=== PATIENT | female | born 1985 | race Caucasian/White ===

== ENCOUNTER → 2019-09-29 09:42 | Outpatient (BNVA) | payer MEDICAID, SELFPAY | PROVIDERS: Family Provider Family Medicine; PCP Family Medicine; Visit Provider Nurse Practitioner Women's Health | DX: Z34.81 Encounter for supervision of other normal pregnancy, first trimester; Z78.9 Other specified health status | CPT/HCPCS: 81000; 84315 ==

== ENCOUNTER → 2019-10-01 09:30 | Outpatient (BNVA) | payer MEDICAID, SELFPAY | PROVIDERS: Family Provider Family Medicine; PCP Family Medicine; Referring Provider Nurse Practitioner Women's Health; Visit Provider Nurse Practitioner Women's Health | DX: Z34.91 Encounter for supervision of normal pregnancy, unspecified, first trimester (principal) | CPT/HCPCS: 76801 ==

== ENCOUNTER → 2019-10-12 10:29 | Outpatient (BNVA) | payer MEDICAID, SELFPAY | PROVIDERS: Family Provider Family Medicine; PCP Family Medicine; Visit Provider Obstetrics & Gynecology | DX: Z01.89 Encounter for other specified special examinations (principal) | CPT/HCPCS: 84315 ==

== ENCOUNTER 2019-10-13 21:19 | Emergency (ER) | payer MEDICAID, SELFPAY ==
[2019-10-13 21:47] VITALS: BP 95/59; PULSE 94; RESP 18; O2SAT 99; BMI 22.8
--- NOTE | 2019-10-13 22:12 | ED_ITS ---
Entered by Latrice Busch, acting as scribe for Earnestine Leonard MD Oct 13, 2019 21:19 HPI - General Adult General: Chief complaint: General Medical Stated complaint: 12 WKS PREG, FEVER, VOMITING Time Seen by Provider: 10/13/19 22:08 Source: patient and family Mode of arrival: ambulatory History of Present Illness: HPI narrative: 34 y/o female presents to the ED with complaint of fever and body aches. Pt states she has had N/V and abd pain when she coughs. She had a temp of 102 prior to taking Tylenol this evening. Pt is 12 weeks and was recently seen by her OB. Pt states she did not receive a flu vaccination. MD complaint: Fever, Body aches Onset (ago): day(s) Pain Consistency: constant Associated symptoms: Reports cough, fevers/chills, nausea, vomiting and weakness; Deny chest pain, headache(s) or rash Review of Systems Const: Reports: fever, chills and body aches Eyes: Denies: blurry vision or eye discomfort ENMT: Denies: throat pain or dental pain Card: Denies: chest pain Resp: Reports: non-productive cough GI: Reports: abdominal pain, nausea and vomiting : Denies: painful urination Musc: Denies: neck pain or back pain Skin/Breast: Denies: rash Neuro: Denies: headache Psych: Denies: depression Mitesh/Lymph: Denies: easy bruising All/Imm: Denies: hives PFSH ED PFSH: Statuses (acute, chronic, etc) shown below reflect problem list status as previously entered and may not be historically accurate Medical History (Updated 10/13/19 @ 22:53 by Earnestine Leonard MD) Patient denies medical problems (Acute) Denies htn,dm,lung,dvt/pe, herpes Surgical History (Updated 09/29/19 @ 09:44 by Karen Herrera APN, LUCAS) H/O knee surgery (Acute) At age 16. Left; lateral release Social History (Updated 10/12/19 @ 10:26 by Onelia Singh LPN) Smoking and tobacco status: never smoked Quit status (tobacco): has quit using tobacco Former quit date comment: 09/04/2019-- was up to 1 ppd Smoking risk assessment/counseling performed?: Yes Alcohol intake: former Former alcohol use details: Socally before finding out she was Additional social history: well-balanced Physical Exam Const: COMMON NORMALS: no apparent distress and oriented x3 GENERAL APPEARANCE: cooperative HENMT: COMMON NORMALS: normocephalic and head/scalp atraumatic HEAD & SCALP: normocephalic and atraumatic Eye: COMMON NORMALS: PERRL and EOMs intact bilaterally PUPIL: Yes PERRL Neck/C-Spine: COMMON NORMALS: full ROM and supple Chest: COMMONS NORMALS: inspection of chest normal and palpation of chest normal Resp: COMMON NORMALS: normal respiratory effort, no retractions, no use of accessory muscles and clear to auscultation bilaterally AUSCULTATION: clear to auscultation bilaterally Cardio: COMMON NORMALS: regular rate, regular rhythm and no murmurs RATE: regular rate RHYTHM: regular rhythm GI: COMMON NORMALS: normal to inspection, nondistended, normoactive bowel sounds, soft to palpation, non-tender and no masses PALPATION: Yes soft Extremity: COMMON NORMALS: normal to inspection and full ROM Neuro: COMMON NORMALS: oriented x3, moves all extremities and no focal motor deficits Psych: COMMON NORMALS: mental status grossly normal, thought process normal and cooperative THOUGHT PROCESS: normal thought process Skin: COMMON NORMALS: no rashes or lesions noted and no wounds GENERAL SKIN EXAM: no rashes or lesions noted Course Vital Signs: Vital signs: Vital Signs Temperature 98.2 F 10/13/19 22:59 Pulse Rate 78 10/13/19 22:59 Respiratory Rate 18 10/13/19 22:59 Blood Pressure 101/54 10/13/19 22:59 Pulse Oximetry 100 10/13/19 22:59 MDM - General Adult MDM Narrative: Medical decision making narrative: Patient presents here with fever is found to have influenza likely causing his fever. Patient also has a urinary tract infection. Abdominal exam here is benign she has no signs of sepsis here. Will start patient on Tamiflu and Keflex. Patient is to follow-up with her OB as soon as possible and return to the ER if worsening. Lab Data: Labs: Lab Results 10/13/19 10/13/19 10/13/19 Range/Units 21:52 21:52 21:52 Urine Color Straw (Yellow) Urine Appearance Sl hazy (CLEAR) Urine pH 7 (5-7) Ur Specific Gravit y 1.015 (1.005-1.030) Urine Protein Neg (Negative) Urine Glucose (UA) Norm (Normal) Urine Ketones 1+ H (Negative) Urine Occult Blood 2+ H (Negative) Urine Nitrate Positive H (Negative) Urine Bilirubin Neg (NEGATIVE) Urine Urobilinogen Norm (Negative) mg/dL Ur Leukocyte Azeb ase Trace H (Negative) Urine RBC 5-10 H (0-2) /hpf Urine WBC 5-10 H (0-5) /hpf Ur Squamous Epith Cells 10-15 H (0-5) Amorphous Sediment 1+ Urine Bacteria 2+ H (NONE) Influenza Type A A g Negative (Negative) POC Influenza B Ag Positive H (Negative) Group A Strep Rapi d Negative (Negative) Discharge Plan Discharge Patient Disposition: Home, Self-Care Clinical Impression: Influenza UTI (urinary tract infection) Qualifiers: Urinary tract infection type: site unspecified Hematuria presence: without hematuria Qualified Code(s): N39.0 - Urinary tract infection, site not specified Condition: Stable Prescriptions: New Zofran 4 mg tablet 4 mg PO QID PRN (Reason: nausea and vomiting) Qty: 14 RF: 0 Keflex 500 mg capsule 500 mg PO Q6H 7 Days Qty: 28 RF: 0 Tamiflu 75 mg capsule 75 mg PO BID 5 Days Qty: 10 RF: 0 No Action Gummies 400 mcg-35 mg- 25 mg-5 mg tablet,chewable PO DAILY RF: 0 Discharge Orders: Discharge Order (Routine); Ordered 10/13/19 Ordered By: Earnestine Leonard Referrals: Galileo Garland MD [Primary Care Provider] - Discharge Diet: Advance as tolerated Discharge Activity: Resume usual activity Patient Instructions: Urinary Tract Infection in Women (ED), Influenza (ED) Coding Level of Care Code ED Cnmt for Chg Fwd Exam Problem Focused The documentation recorded by the Narayan go Ashley, accurately reflects the service I personally performed and the decisions made by Aisha schmidt Korby, MD Oct 13, 2019 21:19
[2019-10-13 22:20] LABS: Urine Appearance SL Hazy (CLEAR); Urine Color Straw (Yellow)
[2019-10-13 22:22] LABS: Bilirubin Urine Neg (NEGATIVE); Blood Urine 2+ (Negative); Glucose Urine UA Norm (Normal); Ketones Urine 1+ (Negative); Leukocyte Esterase Urine Trace (Negative); Nitrate Urine Positive (Negative); Protein Urine Neg (Negative); Specific Gravity, Urine 1.015 (1.005-1.030); Urobilinogen Urine Norm (Negative); pH Urine 7 (5-7)
[2019-10-13 22:23] LABS: Rapid Strep A Test Negative (Negative)
[2019-10-13 22:26] LABS: Bacteria Urine 2+
[2019-10-13 22:27] LABS: Add Urine Culture? No; Amorphous Sediment Urine 1+
[2019-10-13 22:30] LABS: Influenza A by IFA Negative (Negative); Influenza B by IFA Positive (Negative)
[2019-10-13] MEDS: sodium chloride 0.9% 1,000 ML 999 ML IV (22:50)
[2019-10-13 22:59] VITALS: BP 101/54; PULSE 78; RESP 18; TEMP 36.8; O2SAT 100
[2019-10-13] MEDS: cefTRIAXone 1,000 mg SDV 1000 MG IM (23:05)
[2019-10-13] MEDS: oseltamivir phosphate 75 mg Capsule PO (23:17)
[2019-10-13 23:48] VITALS: BP 115/68; PULSE 85; RESP 18; O2SAT 99
== END 2019-10-13 23:51 | disposition home or self-care (01) ==
PROVIDERS: Emergency Provider Emergency Medicine; Family Provider Family Medicine; PCP Family Medicine
DX: O98.511 Other viral diseases complicating pregnancy, first trimester (principal); O23.41 Unspecified infection of urinary tract in pregnancy, first trimester; J11.1 Influenza due to unidentified influenza virus with other respiratory manifestations; Z87.891 Personal history of nicotine dependence; Z3A.12 12 weeks gestation of pregnancy
CPT/HCPCS: 81001; 87081; 87804; 87880; 96360; 96372; 96375; 99282; 99283; A9270; J0696; J7030

== ENCOUNTER 2020-04-25 14:47 | Inpatient (IN) | payer MEDICAID, SELFPAY ==
[2020-04-25] VITALS (17 sets, daily range): BP systolic 91–129; BP diastolic 53–70; PULSE 61–92; RESP 15–18; TEMP 36.8–37.1; O2SAT 98; BMI 25.8
--- NOTE | 2020-04-25 15:13 | PC.NURSE ---
Sourav RN update given to , verbalized he will be here in 5 min.
--- NOTE | 2020-04-25 15:44 | PM.DELIVERY ---
Delivery Note: Date of delivery: April 25, 2020 Pre-Delivery Course: The patient is a 34-year-old 3 para 2-0-0-2 at 40 weeks estimated gestational age who presented to the hospital in active labor. She had an unremarkable . She was GBS negative. The remainder of her labs were within normal limits. She had spontaneous rupture of membranes in the hospital. She quickly progressed to complete without difficulty. Delivery: DELIVERY: The patient progressed to complete without difficulty. She delivered a male with a weight of 7 pounds 10 ounces with Apgars of 8, 9. The baby was delivered from the HOLLAND position. The baby was delivered and placed on the mother's abdomen. The baby's mouth and nose were then suctioned. The cord was then clamped and cut after waiting for 1 minute. There was no nuchal cord. There was no meconium. The placenta and 3 vessel cord were delivered intact shortly thereafter. The perineum and vaginal vault were carefully examined. No lacerations were noted. Both the mother and the baby were in stable condition. A&P Assessment and plan (1) 40 weeks gestation of : Anticipate routine care. The patient does desire sterilization, so we will plan on her having a tubal tomorrow. We will work on the exact time coordinating with the operating room. Status: Acute (2) Sterilization consult: Status: Acute Coding Level of Care Code Acute Concaving Machine Operator for Víctor Joy Diagnoses 40 weeks gestation of Z3A.40 Sterilization consult Z30.09
--- NOTE | 2020-04-25 15:47 | PM.HP ---
Providers/Chief Complaint Admitting Physician: Mert Shah MD Primary Care Provider: Galileo Garland MD Chief Complaint: IUP TERM History of Present Illness Ursula Pugh is a 34 year old female who had discussion with earlier in her about her desire for sterilization. At that time she made it clear that she wanted to have a bilateral tubal ligation. We discussed the risks of bleeding, infection, and damage intra-abdominal organs. We also discussed the possibility of becoming again after a successful tubal ligation. She had an unremarkable spontaneous vaginal delivery. She once again reiterated that she would like to proceed with a tubal ligation. Review of Systems General: Reports: 10 or more systems reviewed and unremarkable except in HPI and below Const: Reports: fatigue; Denies: fever(s) Eyes: Denies: change in vision Card: Denies: chest pain Musc: Reports: back pain Mitesh/Lymph: Denies: easy bruising Medications/Allergies Home Medications Medication Instructions Recorded Confirmed Last Taken Type PNV 153-FA 400 mcg-om3 35 mg-dha tab PO DAILY tab 09/29/19 10/12/19 10/13/19 History 25 mg-epa 5 mg-fish oil chew tablet hydrocodone-acetaminophen 1 tab PO Q6H PRN #10 tab 04/26/20 Unknown Rx ibuprofen 800 mg PO Q8H #30 tab 04/26/20 Unknown Rx ibuprofen 800 mg PO TID #45 tab 04/26/20 Unknown Rx Allergies Allergy/AdvReac Type Severity Reaction Status Date / Time No Known Allergies Allergy Verified 10/12/19 10:24 PFSH Acute PFSH: Medical History Patient denies medical problems Denies htn,dm,lung,dvt/pe, herpes Surgical History H/O knee surgery At age 16. Left; lateral release Family History Grandmother Cancer Maternal grandmother-Breast cancer Diabetes Paternal and Maternal Grandmother Cancer Paternal Grandmother-Uterine cancer & colon cancer Grandfather CAD (coronary artery disease) Maternal grandfather Diabetes Maternal & Paternal Mother CAD (coronary artery disease) Diabetes Father Diabetes Hypertension Sister Family history of thyroid problem Denies family history of Stroke Social History (Updated 10/12/19 @ 10:26 by Onelia Singh LPN) Smoking and tobacco status: never smoked Quit status (tobacco): has quit using tobacco Former quit date comment: 09/04/2019-- was up to 1 ppd Smoking risk assessment/counseling performed?: Yes Alcohol intake: former Former alcohol use details: Socally before finding out she was Additional social history: well-balanced Vitals/I&O/Wt Last Vital Signs Pulse 91 04/25/20 15:42 BP 120/70 04/25/20 15:42 Physical Exam Const: COMMON NORMALS: no acute distress and patient oriented x3 GENERAL APPEARANCE: cooperative, comfortable and well developed HENMT: COMMON NORMALS: normocephalic and moist oral mucous membranes HEAD & SCALP: normocephalic Chest: COMMONS NORMALS: normal inspection of the chest Resp: COMMON NORMALS: normal respiratory effort and clear to auscultation bilaterally AUSCULTATION: clear to auscultation bilaterally Cardio: COMMON NORMALS: regular rate, regular rhythm, No gallops present (Cardio), No murmurs present (Cardio) and No rub (Cardio) RATE: regular rate RHYTHM: regular rhythm Extremity: COMMON NORMALS: normal to inspection Neuro: COMMON NORMALS: patient oriented x3 and no focal motor deficits Skin: COMMON NORMALS: no rashes or lesions noted GENERAL SKIN EXAM: no rashes or lesions noted Data : 04/26/20 03:20 A&P Assessment and plan (1) Sterilization consult: We discussed the patient's desire for sterilization. She still wants a tubal ligation. We discussed the risks of bleeding, infection, damage to intra-abdominal organs. She understands that even with a perfect tubal ligation that she has a 1 and 200 chance of becoming . Status: Acute (2) Spontaneous vaginal delivery: Status: Acute Attestations Medical Necessity Statement*: Routine vaginal delivery and care. Coding Level of Care Code Acute Occupational Nurse for Víctor Fwd Exam Comprehensive Diagnoses Sterilization consult Z30.09 Spontaneous vaginal delivery O80
[2020-04-25 15:51] LABS: Basophils % 0.2 %; Eosinophils # 0.1 10^3/uL (0.0-0.8); Lymphocytes # 3.3 10^3/uL (0.8-4.8); Lymphocytes % 25.4 %; Mean Corpuscular HGB Conc 33.3 g/dL (30.0-36.0); Mean Corpuscular Hemoglobin 32.6 pg (28.0-34.0); Mean Corpuscular Volume 97.8 fL (81-99); Mean Platelet Volume 10.4 fL (7.4-10.4); Monocytes # 0.7 10^3/uL (0.2-0.9); Monocytes % 5.3 %; Neutrophils # 8.79 10^3/uL (1.8-7.7); Neutrophils % 67.3 %; Nucleated Red Blood Cells % 0 %; Platelet Count 332 10^3/cmm (130-400); Red Blood Count 3.68 10^6/uL (4.1-5.3); Red Cell Distribution Width 12.2 % (12.1-15.1); White Blood Count 13.1 10^3/uL (4.0-10.0)
[2020-04-25] MEDS: morphine 4 mg/mL SDV 1 mL 2 MG IVP (16:00)
[2020-04-25] MEDS: oxytocin 30 UNIT/500 ML BAG 600 UNIT IV (16:01)
--- NOTE | 2020-04-25 19:01 | PC.NURSE ---
pt ambulated to room 206-2. oriented to room/call light. proud parent pack discussed.
[2020-04-26] VITALS (17 sets, daily range): BP systolic 88–122; BP diastolic 50–76; PULSE 55–80; RESP 10–20; TEMP 36.2–36.9; O2SAT 96–100
[2020-04-26 03:29] LABS: Hematocrit 34.1 % (37.0-47.0); Hemoglobin 11.2 g/dL (11.5-15.3); Mean Corpuscular HGB Conc 32.8 g/dL (30.0-36.0); Mean Corpuscular Hemoglobin 32.7 pg (28.0-34.0); Mean Corpuscular Volume 99.7 fL (81-99); Mean Platelet Volume 9.8 fL (7.4-10.4); Platelet Count 303 10^3/cmm (130-400); Red Blood Count 3.42 10^6/uL (4.1-5.3); Red Cell Distribution Width 12.2 % (12.1-15.1); White Blood Count 16.2 10^3/uL (4.0-10.0)
--- NOTE | 2020-04-26 06:45 | ANES.PREANE2 ---
Pre-Anesthetic Assessment Pre-Anesthetic Assessment: Height/Weight: Height 1.7 m Weight 74.843 kg Temp Pulse Resp BP Pulse Ox 98.4 F 67 15 93/51 97 04/26/20 05:20 04/26/20 05:20 04/26/20 05:20 04/26/20 05:20 04/26/20 05:20 Preop Diagnosis: POST BILATERAL TUBAL LIGATION Proposed Procedure: Operation Date: 04/26/20 07:00 Proposed Procedures p Bilateral Tubal Ligation(Bilateral) - Mert Shah MD Was Beta Nico taken within 24 hours: N/A Social: Social History: No alcohol and No tobacco Exam: Pre-Anes Outpt Exam: alert, oriented x 3, clear to auscultation bilaterally and regular rate & rhythm Airway: Submandibular: WNL Cervical ROM: WNL MP: 2 Dentition: Full History/ROS: No significant complaints Pulmonary: Pulmonary: None reported CV/HEM: CV/HEM: None reported : : None reported Hepatic: Hepatic: None reported GI: GI: None reported Metabolic: Metabolic: None reported Musc/skel: Musc/skel: None reported Neuropsych: Neuropsych: None reported Anesthetic Plan: ASA status: 2 Anesthesia: General Meds/Allergies Current Medications: Current Medications Generic Name Dose Route Start Last Admin Trade Name Dicksonq PRN Reason Stop Dose Admin Ibuprofen 800 mg 04/25/20 21:00 04/25/20 20:14 Motrin PO 800 mg TID SHILPA Administration PFSH Anesthesia PFSH: Medical History Patient denies medical problems Denies htn,dm,lung,dvt/pe, herpes Surgical History H/O knee surgery At age 16. Left; lateral release Family History Grandmother Cancer Maternal grandmother-Breast cancer Diabetes Paternal and Maternal Grandmother Cancer Paternal Grandmother-Uterine cancer & colon cancer Grandfather CAD (coronary artery disease) Maternal grandfather Diabetes Maternal & Paternal Mother CAD (coronary artery disease) Diabetes Father Diabetes Hypertension Sister Family history of thyroid problem Denies family history of Stroke Social History (Updated 10/12/19 @ 10:26 by Onelia Singh LPN) Smoking and tobacco status: never smoked Quit status (tobacco): has quit using tobacco Former quit date comment: 09/04/2019-- was up to 1 ppd Smoking risk assessment/counseling performed?: Yes Alcohol intake: former Former alcohol use details: Socally before finding out she was Additional social history: well-balanced Female Reproductive History: : 3 Data Anesthesia CBC & Chem 7: 04/26/20 03:20 Other Labs: Laboratory Results - last 48 hr 04/25/20 04/26/20 15:00 03:20 WBC 13.1 H 16.2 H RBC 3.68 L 3.42 L Hgb 12.0 11.2 L Hct 36.0 L 34.1 L MCV 97.8 99.7 H MCH 32.6 32.7 MCHC 33.3 32.8 RDW 12.2 12.2 Plt Count 332 303 MPV 10.4 9.8 Neut % (Auto) 67.3 Lymph % (Auto) 25.4 [place] % (Auto) 5.3 Eos % (Auto) 1.0 Baso % (Auto) 0.2 Neut # (Auto) 8.79 H Lymph # (Auto) 3.3 [place] # (Auto) 0.7 Eos # (Auto) 0.1 Baso # (Auto) 0.0 Nucleated RBC % (auto) 0 Nucleated RBCs # 0.0 Cardiac Studies: No Data to Display
[2020-04-26] MEDS: sodium chloride 0.9% 1,000 ML 30 ML IV (06:59)
--- NOTE | 2020-04-26 07:38 | PM.OP ---
Operative Report Date of procedure: April 26, 2020 Pre-op Diagnosis: POST BILATERAL TUBAL LIGATION Post-op diagnosis: same Procedure Done: Minilaparotomy bilateral tubal ligation using a modified Ivonne technique Specimens removed/disposition: Bilateral fallopian tube segments with the right segment being tagged Pathology: other Pathology: Bilateral fallopian tube segments with the right segment being tagged Surgeon: Mert Shah Anesthesia: General Estimated blood loss (mL): 5 Condition: stable Disposition: floor (OB) Brief History: Refer to history and physical Procedure: The patient was brought back to the operating room where anesthesia was found to be adequate. 10 mL of 0.5% bupivacaine was then used to pre-anesthetize the area just inferior to the umbilicus. A #15 blade was then used to make a 3 cm transverse incision just inferior to the umbilicus. I then dissected down to the underlying subcutaneous tissue until arriving at the fascia. The fascia was then nicked with the scalpel. The fascial incision was extended manually. I identified the fundus of the uterus and followed it to the left fallopian tube. The fallopian tube was then followed to the fimbria. The tube was then ligated, cut, and cauterized in a modified [place] fashion using 0 chromic. The right fallopian tube was then identified and followed through to the fimbria. It was ligated, cut, and cauterized in similar fashion. The right fallopian tube was tagged. Both fallopian tubes had excellent hemostasis. The fascia was reapproximated using 0 Vicryl in running stitch. The subcutaneous tissue was carefully examined and no further bleeding was noted. The skin was then reapproximated using 4-0 Vicryl in a running subcuticular stitch. A sterile dressing was placed. All counts were correct x2. The patient was moved to the recovery room in stable condition.
--- NOTE | 2020-04-26 08:08 | SUR.PHASEI ---
0751 PATIENT TO PACU FROM OR . RR EVEN AND UNLABORED. SPO2 100% ON SIMPLE MASK AT 8L.
--- NOTE | 2020-04-26 08:12 | PM.PACU ---
PACU note PACU note: VSS, good pain control. Post-Anesthesia Exam: somnolent, arousable Disposition: discharged and back to floor
--- NOTE | 2020-04-26 08:30 | ANE.PACU2 ---
Inpatient post-anesthesia follow up: Airway intact: Yes Vital signs: Temperature 98.4 F Pulse Rate 72 Respiratory Rate 16 Blood Pressure 98/66 Pulse Oximetry 98 Oxygen Delivery Me thod Room Air Oxygen Flow Rate 8 Fraction of Inspir ed Oxygen Hydration adequate: Yes Nausea and vomiting: Yes Pain level: 1 Mental status: Baseline
--- NOTE | 2020-04-26 08:31 | SUR.PHASEI ---
0815 PATIENT TO OB FROM PACU. RR EVEN AND UNLABORED. DRESSING TO ABDOMEN, CDI. PATIENT RATES PAIN 5/10. TOLERATING ICE CHIPS.
[2020-04-26] MEDS: HYDROcodone-acetaminophen 5-325 mg Tablet PO (08:32)
[2020-04-26] MEDS: prenatal vitamin Capsule 1 CAP PO (09:29)
[2020-04-26] MEDS: docusate sodium 100 mg Capsule PO ×2 (09:30→17:51)
--- NOTE | 2020-04-26 17:29 | PM.OBGYDC ---
Discharge Providers INSURANCE CLAIMS REPRESENTATIVE Date of Admission: 04/25/20 14:47 Date of Discharge: 04/26/20 Attending Provider at Admission: Mert Shah MD Attending Provider at Discharge: Mert Shah MD Primary Care Provider: Galileo Garland MD Diagnoses at Discharge Discharge Diagnosis (1) Sterilization consult: Status: Acute (2) Spontaneous vaginal delivery: Status: Acute Reason for Visit Reason for Visit: IUP TERM Hospital Course Hospital Course: The patient is a 34-year-old 3 para 2-0-0-2 with an estimated gestational age of 40 weeks presenting to the hospital in active labor. She quickly progressed to complete and had an unremarkable delivery of a healthy-appearing male infant. Her course was also unremarkable. She desired sterilization, and the tubal ligation was performed the following morning. Her bleeding was within normal limits. She breast-fed well. Her pain was well controlled. Information Peripartum Data: Delivery Method: Vaginal Physical Exam Narrative: EXAM NARRATIVE: The patient is alert. She appears comfortable. Her heart has a regular rate and rhythm with no murmurs appreciated. Lungs are clear to auscultation bilaterally. Her fundus is firm and below the umbilicus. Her dressing is clean dry and intact Discharge Data Data Completed and Pending: Pending at discharge Category Date Time Status Hemagram Timed Lab 04/26/20 19:46 Uncollected Pathology: Surgic al [PTH] Routine Pth 04/26/20 07:58 Received Labs from last 24 hours 04/26/20 03:20 WBC 16.2 H RBC 3.42 L Hgb 11.2 L Hct 34.1 L MCV 99.7 H MCH 32.7 MCHC 32.8 RDW 12.2 Plt Count 303 MPV 9.8 Vitals: The patient is a 3 para 2-0-0-2 with an estimated stational age of 40 weeks who presented to the hospital in active laborLast Vital Signs Temp 98.3 F 04/26/20 13:24 Pulse 66 04/26/20 13:24 Resp 18 04/26/20 13:24 BP 100/61 04/26/20 13:24 Pulse Ox 97 04/26/20 13:24 Discharge Plan Discharge Patient Disposition: Home Condition: Stable Prescriptions: New ibuprofen 800 mg tablet 800 mg PO Q8H Qty: 30 RF: 0 hydrocodone-acetaminophen 5-325 mg Tablet 1 tab PO Q6H PRN (Reason: Moderate To Severe Pain) Qty: 10 RF: 0 ibuprofen 800 mg Tablet 800 mg PO TID Qty: 45 RF: 0 Continued Gummies 400 mcg-35 mg- 25 mg-5 mg tablet,chewable PO DAILY RF: 0 Discontinued ondansetron HCl [Zofran] 4 mg tablet 4 mg PO QID PRN (Reason: nausea and vomiting) Qty: 14 RF: 0 Discharge Orders: Discharge Order (Routine); Ordered 04/26/20 Ordered By: Mert Shah Referrals: Mert Shah MD [Physician] - 4-7 days (Also follow up in 6 weeks) Discharge Diet: Usual diet Discharge Activity: Limit activity as instructed Patient Instructions: Vitamins (By mouth), OB Discharge Report, OB Food/Drug Interaction Guide, OB Proud Parent Packet, OB Vaginal Deliveries Discharge Attestations INSURANCE CLAIMS REPRESENTATIVE Time Spent in Discharge Care*: less than 30 min Coding Level of Care Code Acute Planning Director for Chg Fwd Diagnoses Sterilization consult Z30.09 Spontaneous vaginal delivery O80
[2020-04-26] MEDS: measles,mumps,rubella pf Vial (w/diluent) 0.5 ML SUBCUT (17:51)
[2020-04-26] MEDS: lanolin oint 7 gm 1 APPLIC TOPICAL (18:01)
== END 2020-04-26 18:45 | disposition home or self-care (01) | DRG 798 ==
PROVIDERS: Admitting Provider Family Medicine; Family Provider Family Medicine; PCP Family Medicine; Visit Provider Family Medicine
PROC: 0U574ZZ Destruction of Bilateral Fallopian Tubes, Percutaneous Endoscopic Approach (ICD-10-PCS; CPT 58605; principal; 2020-04-26 07:00)
DX: O80 Encounter for full-term uncomplicated delivery (principal); Z37.0 Single live birth; Z3A.40 40 weeks gestation of pregnancy; Z87.891 Personal history of nicotine dependence; Z30.2 Encounter for sterilization
CPT/HCPCS: 12345; 36415; 59025; 59409; 85025; 85027; 88302; 90707; 96372; 99211; J1100; J2250; J2270; J2405; J2704; J2710; J3010; J3490; J7030

== ENCOUNTER 2023-01-11 12:16 | Outpatient (CLI) | payer MEDICAID, SELFPAY ==
--- NOTE | 2023-01-11 12:29 | CTR_ITS ---
PROCEDURE INFORMATION: Exam: CT Abdomen And Pelvis Without Contrast Exam date and time: 01/11/2023 12:42 PM Age: 37 years old Clinical indication: Other: R flank pain; Patient HX: RT flank pain x 9 days, hematuria; Additional info: R flank pain, stat TECHNIQUE: Imaging protocol: Computed tomography of the abdomen and pelvis without contrast. Radiation optimization: All CT scans at this facility use at least one of these dose optimization techniques: automated exposure control; mA and/or kV adjustment per patient size (includes targeted exams where dose is matched to clinical indication); or iterative reconstruction. REPORTING DATA: Count of CT and Cardiac NM exams in prior 12 months: This patient has received 0 known CTs and 0 known cardiac nuclear medicine studies in the 12 months prior to the current study. COMPARISON: CT abdomen pelvis w con* [id number] 06/27/2019 6:23 PM RADIATION DOSE METRICS: Total DLP (mGy-cm): 292.83 FINDINGS: Lungs: Lung bases appear clear. Liver: Normal. No mass. Gallbladder and bile ducts: Normal. No calcified stones. No ductal dilation. Pancreas: Normal. No ductal dilation. Spleen: Normal. No splenomegaly. Adrenal glands: Normal. No mass. Kidneys and ureters: Punctate nonobstructing renal calculus is seen bilaterally indicating mild nephrolithiasis. No ureteral calculus or obstructive uropathy is seen. No abnormal perinephric stranding identified. Mild scarring superior pole left kidney as noted with prior exam. Stomach and bowel: Unremarkable. No obstruction. No mucosal thickening. Appendix: No evidence of appendicitis. Intraperitoneal space: Unremarkable. No free air. No significant fluid collection. Vasculature: Unremarkable. No abdominal aortic aneurysm. Lymph nodes: Unremarkable. No enlarged lymph nodes. Urinary bladder: Urinary bladder is partially distended without significant abnormality. Reproductive: Unremarkable as visualized. Bones/joints: Unremarkable. No acute fracture. Soft tissues: Small periumbilical hernia fat. CT/CT kidney stone [id number] IMPRESSION: 1. Punctate nonobstructing renal calculus bilaterally indicating mild nephrolithiasis, without ureteral calculus or obstructive uropathy or perinephric stranding. 2. Incidental small periumbilical hernia fat. 3. No acute findings, otherwise.
== END 2023-01-11 12:17 | disposition home or self-care (01) ==
PROVIDERS: PCP Family Medicine; Visit Provider Family Medicine
DX: R10.9 Unspecified abdominal pain (principal); N20.0 Calculus of kidney
CPT/HCPCS: 74176